=== PATIENT | male | born 1990 | race Caucasian/White ===

== ENCOUNTER 2019-05-22 17:30 | Inpatient (IN) | payer OTHER ==
[~2019-05-22] VITALS: Ht 180.3 cm; Wt 96.6 kg
--- NOTE | ~2019-05-22 | EEG ---
[address] [address] EEG STUDY REPORT Name: LEE CHUN Room: [address] IN .R.#: [id number] Admission: 05/22/19 Attend Phys: Dae Kent MD Discharge: Date of : 88 Report #: [id number] THIS REPORT FOR: //name// CC: FAM physician/PCP Dae Kent DATE OF SERVICE: 05/24/2019 This patient is being evaluated for seizure. EEG was done by placing the electrode by standard 10-20 system of electrode placement. Both referential and sequential montages were used for recording. Background activity in this patient's EEG is about 10 Hz and 30 microvolt. The patient went to sleep that is associated with bilateral slowing and vertex sharp waves. Photic stimulation is unremarkable. Throughout the record, no active epileptiform activity was noticed. IMPRESSION: This patient's EEG does not show any active epileptiform activity. EEG can be normal in a patient with a seizure disorder. 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 I will defer further cardiac workup, which is necessary in this patient to hospitalist and commercial sales manager. Thank you very much for this referral. By: [id number] Perez MD /vanita
--- NOTE | ~2019-05-22 | CON ---
[address] [address] CONSULTATION Name: LEE CHUN Room: [place] [address] ADM IN M.R.#: [id number] Admission: 05/22/19 Attend Phys: Dae Kent MD Discharge: Date of : 88 Report #: [id number] THIS REPORT FOR: //name// CC: [facility] physician/PCP Dae Kent DATE OF SERVICE: 05/23/2019 HISTORY OF PRESENT ILLNESS: This is a 28-year-old male patient who was evaluated by me for seizures. He is not a very good historian. He indicated that his seizures started when he was a teenager. Initially, he said it started when he was about 11, but then he thought it might be 15. He saw a neurologist at that time, but it is not clear what workup was done. He has not seen a neurologist for a long time. He indicates the only medication he has tried for seizure is Depakote. He continued to have intermittent seizures with Depakote. He had several seizures in the last few days without missing any Depakote and with his last Depakote level checked yesterday was 62. He does not know anything which brought these seizures on. He had multiple falls and multiple abrasions on the face. He did undergo a CT scan of the head and C-spine, which were reviewed and that does not appear to be showing any definite acute abnormality. REVIEW OF SYSTEMS: Indicate history of seizure, which is longstanding. Seizures are uncontrolled. He denies any other medical issues. He denies he is a diabetic. He had some hip surgery. He has a history of appendectomy. This was his relevant 14-point review of system. PAST MEDICAL HISTORY: Positive for seizure. FAMILY HISTORY: Negative for any seizure, but he is the only child. SOCIAL HISTORY: To me he tells me he drinks alcohol rarely, but the records indicate otherwise. PHYSICAL EXAMINATION: Indicate he is alert, responsive, able to follow simple and complex command. He thinks his speech, concentration, fund of knowledge and memory is at his baseline. His cranial nerve examination 2-12 does not appear to be showing any focality. Strength, sensation, reflexes and tone is symmetrical. There is no meningeal sign. There is no carotid bruit. Cardiorespiratory examinations appear unremarkable. There is no respiratory difficulty. The blood pressure is 97/48, respirations 18, pulse is 71, and temperature is 97.4. LABORATORY DATA: His white count is somewhat up at 12. His magnesium is normal. CPK is somewhat high. His imaging study as described above, he is a well-developed individual who does not have any thyroid [place] [address] CONSULTATION Name: LEE CHUN Room: [address] IN [facility]#: [id number] Admission: 05/22/19 Attend Phys: Dae Kent MD Discharge: Date of : 88 Report #: [id number] bruit. IMPRESSION: 1. Recurrent seizures in spite of therapeutic Depakote. 2. Increased CPK, most likely secondary to the patient's recurrent seizure. 3. Slightly increased WBC count, which is probably because of de-margination caused by seizure. RECOMMENDATIONS: 1. EEG. 2. If there is no contraindication, we will do the MRI. 3. This patient will need some other anticonvulsant. PLAN: The plan will be to add another anticonvulsant for the time being. The problem is patient's finances. He wants the cheaper medication. We can try Keppra, but if Keppra is unsuccessful, we can try Dilantin and these will be the cheaper medication and will be easier to build up. 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 He cannot do anything where he can hurt himself if he has a seizure. He also cannot drive at least for 6 months from the last seizure. All of it was discussed with the patient. By: [id number] Perez MD /vanita
[2019-05-22 17:36] VITALS: BP 123/68
[2019-05-22] MEDS ORDERED: DEPAKOTE ER500 M1 PO (17:39)
[2019-05-22 18:19] LABS: ABSOLUTE BASOPHILS 0.1 thou/uL (0.0-0.2); ABSOLUTE EOSINOPHILS 0.1 thou/uL (0.0-0.7); ABSOLUTE LYMPHOCYTES 2.1 thou/uL (0.8-5.3); ABSOLUTE NEUTROPHILS 8.7 thou/uL (1.6-8.1); BASOPHILS 0.7 %; EOSINOPHILS 0.8 %; HEMATOCRIT 47.3 % (42.0-52.0); HEMOGLOBIN 16.2 gm/dL (14.0-18.0); LYMPHOCYTES 17.7 %; MCH 29.8 pg (26.0-34.0); MCHC 34.3 g/dL (28.0-37.0); MCV 86.9 fL (80.0-100.0); NUCLEATED RBCS 0 /100WBC; PLATELET COUNT* 217 thou/uL (150-400); POLYS 72.8 %; RBC 5.44 mil/uL (4.50-6.00); RDW-CV 13.5 % (10.5-14.5)
[2019-05-22 18:40] LABS: ALBUMIN 3.7 g/dL (3.4-5.0); CALCIUM 8.7 mg/dL (8.5-10.1); CREATININE 1.2 mg/dL (0.6-1.3); POTASSIUM 3.7 mmol/L (3.5-5.1); TOTAL BILIRUBIN 0.5 mg/dL (<0.1-1.0); TOTAL PROTEIN 7.5 g/dL (6.4-8.2)
[2019-05-22 18:52] LABS: URINE BILIRUBIN NEGATIVE (Negative); URINE BLOOD NEGATIVE (Negative); URINE CLARITY CLEAR; URINE COLOR YELLOW; URINE GLUCOSE-RANDOM NEGATIVE (Negative); URINE KETONES NEGATIVE (Negative); URINE LEUKOCYTES-REFLEX NEGATIVE (Negative); URINE NITRITE-REFLEX NEGATIVE (Negative); URINE PROTEIN NEGATIVE (Negative); URINE UROBILINOGEN 0.2 E.U./dl (0.2-1.0)
[2019-05-22 19:17] LABS: AMP/METHAMP Negative (Negative); BARBITURATES Negative (Negative); BENZODIAZEPINES Negative (Negative); COCAINE Negative (Negative); METHADONE Negative (Negative); OPIATES Negative (Negative); PCP Negative (Negative); THC Negative (Negative)
[2019-05-22 21:02] VITALS: BP 115/78
[2019-05-22 21:10] VITALS: BP 115/71
[2019-05-23 00:33] VITALS: BP 94/54
--- NOTE | 2019-05-23 03:05 | NUR ---
PT ADMIT TO ROOM 227 AT 2110. ALERT ORIENTED. UP WITH STD BY ASSIST. ABRASION TO L SIDE OF FACE. APPEARS TO BE SEVERAL DAYS OLD. BED RALES PADDED. SEIZURE PRECAUTIONS IN PLACE. TELEMETRY SHOWS SR. DONNA
[2019-05-23 04:00] VITALS: BP 100/49
[2019-05-23 08:00] VITALS: BP 97/48
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
[2019-05-23 12:28] VITALS: BP 105/51
--- NOTE | 2019-05-23 15:01 | EKG ---
[place] [address] ELECTROCARDIOGRAM REPORT Name: LEE CHUN Room: [place] [address] ADM IN .R.#: [id number] Admission: 05/22/19 Attend Phys: Dae Kent MD Discharge: Date of : 88 Report #: [id number] THIS REPORT FOR: //name// [facility] ED Test Date: 2019-05-22 Test Time: 18:02:18 Pat Name: LEE REYESAN Department: Room: [facility] Gender: M Director [employer]: [facility] : 1990 Requested By: Carlene Doll Order Number: [id number] MD: Mike Khan Measurements Intervals Lotus Rate: 67 P: 46 MN: 134 QRS: 51 QRSD: 84 T: 24 QT: 359 QTc: 379 Interpretive Statements Sinus rhythm No previous ECG available for comparison Electronically Signed On 05-23-2019 15:00:39 BRIM PLATER by Mike Khan [email or web address] <ELECTRONICALLY SIGNED> By: Mike Khan MD, [facility] 05/23/19 1500 01 01 Mike Khan MD, FACC /EPI
--- NOTE | 2019-05-23 16:26 | NUR ---
assumed pt care report received from nurse. pt is aox4, on ra. tracing sinus rythm on manager lighting. seizure precuation in place. no complaint. depakote unavailable in the am in [facility]. pharmacy was called to stock. then seizure medicines were given to pt when available. iv fluid infusing as ordered. EEG ordered per neurologist. no complaint. will continue to monitor pt
[2019-05-23 20:00] VITALS: BP 106/58
[2019-05-24 00:25] VITALS: BP 105/58
--- NOTE | 2019-05-24 03:35 | NUR ---
PT ALERT ORIENTED. UP WITH ASSIST OF ONE. PT RATED GENERALIZED PAIN 6/10. DR NOTIFIED. TRAMADOL, TYLENOL AND TORDOL ORDERED AND GIVEN. PT PAIN FREE AFTER MEDICATIONS. TELEMETRY SHOWS SR. PT SB 50S AND DIP DOWN TO THE 40S DURING SLEEP. SEIZURE PRECAUTIONS IN PLACE. WCTM
[2019-05-24 04:00] VITALS: BP 120/66
[2019-05-24 08:00] VITALS: BP 138/59
--- NOTE | 2019-05-24 11:25 | NUR ---
Nutrition: consult received, reason not indicated. Pt here with seizures, tounge laceration. However, pt noted that this has not effected po intake. Reports good appetite and intake. No requests or concerns. Defer assessement.
[2019-05-24 12:23] VITALS: BP 123/66
[2019-05-24 14:30] VITALS: BP 123/66
[2019-05-24] MEDS ORDERED: KEPPRA 500 MG500 MG PO (14:32)
[2019-05-24] MEDS ORDERED: DEPAKOTE ER500 M1 PO (14:55)
[2019-05-24] MEDS ORDERED: KEPPRA 500 MG500 M1 PO (14:56)
--- NOTE | 2019-05-24 16:15 | NUR ---
ASSUMED PT CARE AT 0730. ASSESSMENT COMPLETED CHARTED. ABLE TO MAKE NEEDS KNOWN. UP WITH SBA. IV FLUIDS RUNNING PER EMAR. DISCHARGE APPROVED. DISCHARGE WENT OVER WITH PT AND FRIEND. SCRIPTS AND MED INFO GIVEN TO PT. IV AND HEART MONITOR REMOVED. PT LEFT WITH FRIEND WITH HELP WITH STAFF AT AROUND 1550. NO COMMENTS, QUESTIONS, OR COMPLAINTS NOTED.
== END 2019-05-24 15:54 | disposition home or self-care (01) | DRG 101 ==
LOC: M.ERS 17:30 → M.TBA-ER 20:08 → M.2W 20:08
PROVIDERS: Physician Assistant; ADMIT Internal Medicine
DX: G40.909 Epilepsy, unspecified, not intractable, without status epilepticus (principal); M62.82 Rhabdomyolysis; R65.10 Systemic inflammatory response syndrome (SIRS) of non-infectious origin without acute organ dysfunction; Z95.0 Presence of cardiac pacemaker; S01.512A Laceration without foreign body of oral cavity, initial encounter; J32.9 Chronic sinusitis, unspecified; F17.210 Nicotine dependence, cigarettes, uncomplicated; Z90.49 Acquired absence of other specified parts of digestive tract; R00.1 Bradycardia, unspecified; Z23 Encounter for immunization; X58.XXXA Exposure to other specified factors, initial encounter; Y93.89 Activity, other specified; Y92.89 Other specified places as the place of occurrence of the external cause; Y99.8 Other external cause status